=== PATIENT | female | born 1960 | race Caucasian/White ===

== ENCOUNTER → 2018-06-27 | Outpatient (CLI) | payer OTHER ==
[~2018-06-27] MED LIST: ASPIR 8181 MG PO; ATORVASTATIN CA40 MG PO; BRILINTA90 MG PO; LISINOPRIL20 MG PO; LOPRESSOR25 PO; NITROGLYCERIN0.4 MG SUBLING; OMEPRAZOLE 20 M20 M1 PO; PROTONIX40 M1 PO; PROZAC10 MG PO
[2018-06-27 14:32] LABS: CREATININE 0.7 mg/dL (0.6-1.3); POTASSIUM 3.4 mmol/L (3.5-5.1)
== END ==
LOC: M.LAB 13:53
PROVIDERS: Registered Nurse
DX: E87.6 Hypokalemia (principal)

== ENCOUNTER → 2020-08-28 | Outpatient (CLI) | payer OTHER | LOC: M.RAD 11:25 | PROVIDERS: ATTEND Registered Nurse | DX: R06.02 Shortness of breath (principal) ==